=== PATIENT | male | born 1995 | race Caucasian/White ===

== ENCOUNTER 2023-10-21 18:19 | Emergency (ER) | payer OTHER ==
[2023-10-21 18:28] VITALS: BP 143/93; PULSE 119; RESP 20; TEMP 100.9; BMI 27.6
[2023-10-21] MEDS: ACETAMINOPHEN 325 MG TABLET (FP) PO ONE (18:51)
[2023-10-21] MEDS ORDERED: ACETAMINOPHEN 500 MG TABLET (FP) ONE (18:52)
[2023-10-21 19:47] LABS: EPI CELLS 3 /uL (0-25.1); HYALINE CASTS 0 /uL (0-3.1); URINE APPEARANCE CLEAR; URINE BACTERIA 6 /uL (0-1359); URINE BILIRUBIN NEGATIVE (NEGATIVE); URINE COLOR YELLOW; URINE GLUCOSE (UA) NEGATIVE (NEGATIVE); URINE KETONE NEGATIVE (NEGATIVE); URINE LEUK ESTERASE NEGATIVE (NEGATIVE); URINE NITRITE NEGATIVE (NEGATIVE); URINE PROTEIN NEGATIVE (NEGATIVE); URINE RBC 7 /uL (0-23.9); URINE UROBILINOGEN 0.2 mg/dL (0.2-1.0); URINE WBC 3 /uL (0-25.8)
== END 2023-10-21 20:53 | disposition home or self-care (01) ==
LOC: JERFT 18:19 → JER 18:19 → JERFT 20:53
DX: R50.9 Fever, unspecified (principal); R05.9 Cough, unspecified; R10.13 Epigastric pain; R30.0 Dysuria; J10.1 Influenza due to other identified influenza virus with other respiratory manifestations; Z20.822 Contact with and (suspected) exposure to COVID-19
CPT/HCPCS: 0241U-QW; 81003; 99283-25